=== PATIENT | male | born 1990 | race Caucasian/White ===

== ENCOUNTER 2020-02-16 15:47 | Emergency (ER) | payer OTHER ==
[~2020-02-16] VITALS: Ht 170.2 cm; Wt 70.3 kg
[2020-02-16] MEDS ORDERED: FAMOTIDINE20 MG ORAL (15:50)
[2020-02-16] MEDS ORDERED: ZOFRAN4 MG ORAL (15:50)
[2020-02-16 15:51] VITALS: BP 146/100
--- NOTE | 2020-02-16 15:52 | NUR ---
ED Nurse Note:pt. was BIBA from the street with c/o abdominal pain for 7 months, pt. is eating his food on arrival, given po meds, A/Ox4
--- NOTE | 2020-02-16 16:05 | NUR ---
ED Nurse Note:pt. was provided with food, then he received d/c instructions with homeless d/c form and list of resourses, pt. is A/Ox4 ,left er with steasdy gait and all personal belongings
--- NOTE | 2020-02-16 16:07 | Emergency Room Report ---
History of Present Illness General Chief Complaint: Abdominal Pain Source: Patient Present Illness HPI Disclaimer: Please note that this report is being documented using [employer] technology. This can lead to erroneous entry secondary to incorrect interpretation by the dictating instrument. HPI: 29-year-old male no reported past medical history presents with epigastric pain. He states it has been present on and off for months. Epigastric nonradiating occasional nausea but no vomiting. Patient states he uses methamphetamine regularly last use yesterday. Patient presented from the street by EMS. On arrival he was eating a sandwich. No fevers or coughing. No urinary complaints. PMH: Patient denies any past medical history PSH: Reviewed Social Hx: Patient denies smoking drinking but uses methamphetamine Allergies: Coded Allergies: No Known Allergies (Unverified , 02/16/20) COVID-19 Screening Contact w/high risk pt: No Experienced COVID-19 symptoms?: No COVID-19 Testing performed COMPUTER GAME TESTER: No Patient History Reviewed Nursing Documentation: PMH: Agreed; PSxH: Agreed Nursing Documentation-PMH Hx Asthma: Yes Review of Systems All Other Systems: negative except mentioned in HPI Physical Exam Vital Signs Date Time Temp Pulse Resp B/P (MAP) Pulse Ox O2 Delivery O2 Flow Rate FiO2 02/16/20 15:41 98.2 86 18 146/100 (115) 98 Room Air Sp02 EP Interpretation: reviewed, normal General Appearance: well appearing, no apparent distress Head: normocephalic, atraumatic Eyes: bilateral eye PERRL, bilateral eye EOMI ENT: hearing grossly normal, moist mucus membranes Neck: full range of motion, supple Respiratory: lungs clear, normal breath sounds, no rhonchi, no respiratory distress, no retraction, no wheezing Cardiovascular #1: normal peripheral pulses, regular rate, rhythm, no murmur Gastrointestinal: non tender, soft, non-distended, no guarding Neurologic: alert, oriented x3, no focal defects Skin: normal color, warm/dry Medical Decision Making Diagnostic Impression: Primary Impression: Epigastric pain ER Course Patient presents with reported chronic epigastric pain. Differential included GERD versus gastritis less likely surgical abdominal disease. Patient was eating a large amount of food on arrival. Denied vomiting. Afebrile. Stable vital signs. No medical history. Does report use of methamphetamine. I recommended to avoid further use of methamphetamine. Will start patient on Pepcid. Zofran as needed for nausea. Recommended follow-up with PMD, return precautions were given. Abdomen was nontender. Nondistended. He was no acute distress. Stable for discharge with return precautions. Last Vital Signs Date Time Temp Pulse Resp B/P (MAP) Pulse Ox O2 Delivery O2 Flow Rate FiO2 02/16/20 15:51 98.2 86 18 146/100 98 Room Air Disposition: HOME, SELF-CARE Condition: Stable Scripts Ondansetron (Zofran) 4 Mg Tablet 4 MG ORAL Q8H PRN for Nausea & Vomiting, #10 TAB 0 Refills Prov: Kristian Fabian M.D. 02/16/20 Famotidine* (Pepcid 20mg tablet*) 20 Mg Tablet 20 MG ORAL TWICE A DAY, #60 TAB 0 Refills Prov: Kristian Fabian M.D. 02/16/20 Referrals: [facility] Patient Instructions: Heartburn, [id number] Additional Instructions: Patient is instructed to follow-up with her primary care doctor, primary care clinic or [facility] in 1 to 2 days. Patient instructed to return for any worsening symptoms or concerns. Disclaimer: Please note that this report is being documented using [employer] technology. This can lead to erroneous entry secondary to incorrect interpretation by the dictating instrument. Kristian Fabian M.D. Feb 16, 2020 16:07
== END 2020-02-16 16:35 | disposition home or self-care (01) ==
LOC: EDBD 15:47 → EMR 16:25
DX: R10.13 Epigastric pain (principal); G89.29 Other chronic pain; F15.90 Other stimulant use, unspecified, uncomplicated
CPT/HCPCS: 99283